=== PATIENT | female | born 1960 | race Caucasian/White ===

== ENCOUNTER 2018-02-21 16:41 | Observation (INO) ==
--- NOTE | 2018-02-21 17:23 | Emergency Department Note ---
Disposition Clinical Impression: Constipation Abdominal pain Qualifiers: Abdominal location: generalized Qualified Code(s): R10.84 - Generalized abdominal pain Disposition: Still a Patient Condition: Fair Time of Disposition: 18:54 Abdominal Pain HPI - General Chief Complaint: ED Abdominal Pain Stated Complaint: "Constipated" Time Seen by Provider: 02/21/18 16:55 Source: patient Nursing Notes Reviewed: Yes Vital Signs Reviewed: Yes - History of Present Illness HPI Narrative: 58 year old female presents for constipation and abdominal pain. Patient states that she's been constipated for 6 months and been getting worse. Five days ago, she took X-lax for constipation for 4 days. She made a small bowel movement measuring about a cup of soft stool. There was "a little" bright red blood on toilet paper. Patient did not feel completely empty but could not defecate further. Patient does not know if she has hemorrhoids. Patient has not been able to make another bowel movement since. States she feels bloated. Patient states she's been drinking a gallon of water daily for 2 weeks. She has not tried any other laxatives or stool softeners since. Patient also complains of abdominal pain that started 2 days ago. Describes "tearing" pain in LUQ and LLQ that worsens when she lays down. Patient has not tried anything for the pain. Patient also reports she feels lightheaded when she lays down. Patient denies fever, nausea/vomiting, urinary symptoms, swelling. Patient states she's worried about colon cancer because two people she knows got diagnosed with colon cancer. Reports medical history of titanium rods in back, diabetes, sciatic nerve, HTN, and HLD. Current smoker. Denies alcohol and drugs. Pain Scale: 7 - Related Data Home Medications Medication Instructions Recorded Confirmed Gabapentin [Neurontin] 800 mg PO TID 11/11/15 11/11/15 Lisinopril [Zestril] 20 mg PO BID 11/11/15 11/11/15 OxyCODONE/APAP 7.5/325 [Percocet 1 each PO Q6HR 11/11/15 11/11/15 7.5/325 MG] Pravastatin Sodium [Pravachol] 40 mg PO BID 11/11/15 11/11/15 metFORMIN [Glucophage] 500 mg PO BID 11/11/15 11/11/15 Insulin DETEMIR [Levemir Flextouch] 100 unit SQ 02/28/16 02/28/16 Previous Rx's Medication Instructions Recorded Albuterol Sulfate [Albuterol 2 puff IH QID #1 inhaler 02/28/16 Inhaler] Doxycycline 100 mg PO BID #20 capsule 02/28/16 Ondansetron HCl [Zofran] 4 mg PO TID PRN #10 tablet 02/28/16 Benzonatate [Tessalon] 200 mg PO TID PRN #30 capsule 06/07/16 DiphenhydraMINE [Benadryl] 25 mg PO Q8HR PRN #20 capsule 06/07/16 Fluconazole [Diflucan] 150 mg PO Q3D #2 tab 06/07/16 GuaiFENesin ER [Mucinex] 1,200 mg PO BID #20 tbbp.12hr 06/07/16 cephALEXin [Keflex] 500 mg PO QID #40 capsule 06/07/16 Allergies Allergy/AdvReac Type Severity Reaction Status Date / Time vancomycin Allergy Swelling Verified 02/21/18 16:46 of Lip/Tongue/Throat Constitutional: Denies: fever, chills Eyes: Denies: eye pain, eye discharge ENT ED: Denies: ear pain, throat pain Cardiovascular: Denies: chest pain, palpitations Respiratory: Denies: cough, dyspnea Gastrointestinal: Reports: abdominal pain. Denies: nausea Genitourinary: Denies: urgency, dysuria Musculoskeletal: Reports: back pain. Denies: neck pain Integumentary: Denies: rash, abrasion Neurological: Denies: headache, weakness Abdominal Pain PMH - Past Medical History Medical history: Reports: diabetes, hyperlipidemia, hypertension Female Surgical History: Reports: no surgical history Psychiatric history: Reports: no psych history - Social History Smoking status: Current every day smoker Alcohol use: Reports: none Drug use: Reports: none Physical Exam - General Limitations: no limitations General appearance: alert - Head Head exam: atraumatic, normocephalic - Eye Eye exam: Present: PERRL, EOMI - ENT ENT exam: normal exam, normal oropharynx - Neck Neck exam: Present: normal inspection - Chest Chest inspection: Present: normal inspection, symmetric chest wall rise - Respiratory Respiratory exam: Present: normal lung sounds bilaterally. Absent: respiratory distress - Cardiovascular Cardiovascular exam: Present: regular rate, normal rhythm - Abdominal Exam Abdominal exam: Present: soft, tenderness (diffusely tender to palpation but worse at RUQ, LUQ, and LLQ), normal bowel sounds. Absent: distention, guarding, rebound, rigidity - Extremities Exam Extremities exam: Present: normal inspection. Absent: tenderness, pedal edema, joint swelling - Back Exam Back exam: Present: normal inspection. Absent: tenderness - Neurological Exam Neurological exam: Present: alert, oriented X3 - Skin Skin exam: Present: warm, dry, intact, normal color Course Course Narrative: 58 year old female presents for constipation and abdominal pain. Patient is alert and oriented and hemodynamically stable. On exam, abdomen is soft. There is diffuse tenderness to palpation, especially at RUQ, LUQ, and LLQ. Will check labwork. Will check CT abd/pelvis. Will provide IVF, zofran, and dilaudid. - Reevaluation(s) Reevaluation #1: UA is negative. Sign out to Dr. Chahal and Dr. Morales. Time: 18:53 Vital Signs Temperature 97.6 F 02/21/18 16:45 Pulse Rate 88 02/21/18 16:45 Respiratory Rate 18 02/21/18 16:45 Blood Pressure 175/91 02/21/18 16:45 O2 Sat by Pulse Oximetry 99 02/21/18 16:45 Temperature 97.6 F 02/21/18 17:07 Pulse Rate 85 02/21/18 17:11 Respiratory Rate 16 02/21/18 17:11 Blood Pressure 166/91 02/21/18 17:11 O2 Sat by Pulse Oximetry 97 02/21/18 17:11 Oxygen Delivery Oxygen Delivery Room Air Abdominal Pain - Medical Records Medical records reviewed: Yes I reviewed the patient's medical records. - Lab Data Lab results reviewed: Yes I reviewed the patient's lab results.
[2018-02-21] MEDS ORDERED: 0.9 % Sodium Chloride 1,000 ML IVC ONE (17:51)
[2018-02-21] MEDS ORDERED: Ondansetron 4 MG/2 ML VIAL IVP ONE ×2 (17:51→20:31)
[2018-02-21] MEDS ORDERED: *HR* HYDROmorphone (PF) 1 MG/ML SYRINGE IVP ONE ×2 (17:51→20:31)
[2018-02-21] MEDS ORDERED: Isovue-370 500 ML INFUS..BTL IV ONE (17:52)
--- NOTE | 2018-02-21 17:53 | Emergency Department Note ---
Disposition Clinical Impression: Elevated lipase, Common bile duct dilation Abdominal pain Qualifiers: Abdominal location: generalized Qualified Code(s): R10.84 - Generalized abdominal pain Disposition: Admitted As Inpatient Condition: Fair Referrals: NONE,PCP [Non-Partnered Physician] - Forms: ED Satisfaction Letter, Work/School Release General Adult HPI - General Chief complaint: ED Abdominal Pain Stated complaint: "Constipated" Time Seen by Provider: 02/21/18 16:55 Source: patient Limitations: no limitations - History of Present Illness Pain Scale: 7 - Related Data Home Medications Medication Instructions Recorded Confirmed Gabapentin [Neurontin] 800 mg PO TID 11/11/15 11/11/15 Lisinopril [Zestril] 20 mg PO BID 11/11/15 11/11/15 OxyCODONE/APAP 7.5/325 [Percocet 1 each PO Q6HR 11/11/15 11/11/15 7.5/325 MG] Pravastatin Sodium [Pravachol] 40 mg PO BID 11/11/15 11/11/15 metFORMIN [Glucophage] 500 mg PO BID 11/11/15 11/11/15 Insulin DETEMIR [Levemir Flextouch] 100 unit SQ 02/28/16 02/28/16 Previous Rx's Medication Instructions Recorded Albuterol Sulfate [Albuterol 2 puff IH QID #1 inhaler 02/28/16 Inhaler] Doxycycline 100 mg PO BID #20 capsule 02/28/16 Ondansetron HCl [Zofran] 4 mg PO TID PRN #10 tablet 02/28/16 Benzonatate [Tessalon] 200 mg PO TID PRN #30 capsule 06/07/16 DiphenhydraMINE [Benadryl] 25 mg PO Q8HR PRN #20 capsule 06/07/16 Fluconazole [Diflucan] 150 mg PO Q3D #2 tab 06/07/16 GuaiFENesin ER [Mucinex] 1,200 mg PO BID #20 tbbp.12hr 06/07/16 cephALEXin [Keflex] 500 mg PO QID #40 capsule 06/07/16 Allergies Allergy/AdvReac Type Severity Reaction Status Date / Time vancomycin Allergy Swelling Verified 02/21/18 16:46 of Lip/Tongue/Throat Constitutional: Denies: fever, chills Eyes: Denies: eye pain, eye discharge ENT ED: Denies: ear pain, throat pain Cardiovascular: Denies: chest pain, palpitations Respiratory: Denies: cough, dyspnea Gastrointestinal: Reports: abdominal pain. Denies: nausea Genitourinary: Denies: urgency, dysuria Musculoskeletal: Reports: back pain. Denies: neck pain Integumentary: Denies: rash, abrasion Neurological: Denies: headache, weakness Past Medical History - Past Medical History Medical history: Reports: diabetes, hyperlipidemia, hypertension Psychiatric history: Reports: no psych history - Social History Smoking Status: Current every day smoker Smokeless Tobacco Status: No Alcohol use: Reports: none Drug use: Reports: none Physical Exam - General Limitations: no limitations General appearance: alert Course Vital Signs Temperature 97.6 F 02/21/18 16:45 Pulse Rate 88 02/21/18 16:45 Respiratory Rate 18 02/21/18 16:45 Blood Pressure 175/91 02/21/18 16:45 O2 Sat by Pulse Oximetry 99 02/21/18 16:45 Temperature 97.6 F 02/21/18 17:07 Pulse Rate 96 02/21/18 18:40 Respiratory Rate 18 02/21/18 18:40 Blood Pressure 119/78 02/21/18 18:40 O2 Sat by Pulse Oximetry 96 02/21/18 18:40 Oxygen Delivery Oxygen Delivery Room Air Medical Decision Making - [facility] Narrative Medical decision making narrative: , Bile duct is dilated. Lipase is borderline, just under 1.5 times over limits of normal. Alkaline phosphatase and transaminases are normal. She is not a drinker. MRCP at this point would seem warranted. She continues to have pain and nausea, we will repeat her medications. We have paged the hospitalist for admission. - Lab Data Result diagrams: 02/21/18 19:00 02/21/18 19:00 Lab Results 02/21/18 02/21/18 02/21/18 Range/Units 18:25 19:00 19:00 WBC 9.0 (4.3-11.1) K/mcL RBC 4.74 (3.82-4.97) M/mcL Hgb 13.5 (11.5-15.4) g/dL Hct 40.2 (35.3-44.9) % MCV 84.8 (83.0-100.0) fL MCH 28.5 (28.0-33.3) pg MCHC 33.6 (31.6-35.5) g/dL RDW 13.8 (11.5-14.5) % Plt Count 231 (140-400) K/mcL MPV 11.8 (9.4-12.4) fL Immature Gran % 0.2 (0-4) % Seg Neutrophils % 42.1 % Lymphocytes % 47.6 % Monocytes % 6.4 % Eosinophils % 2.9 % Basophils % 0.8 % Neutrophils # 3.8 (1.6-8.9) K/mcL Lymphocytes # 4.3 (0.6-4.6) K/mcL Monocytes # 0.6 (0.0-1.3) K/mcL Eosinophils # 0.3 (0.0-0.6) K/mcL Basophils # 0.1 (0.0-0.2) K/mcL Sodium 137 (136-145) mEq/L Potassium 4.0 (3.5-5.1) mEq/L Chloride 104 (98-107) mEq/L Carbon Dioxide 26 (23-29) mEq/L BUN 10 (6-20) mg/dL Creatinine 0.56 L (0.60-1.20) mg/dL Est GFR ( Amer) > 60 (> 60) Est GFR (Non-Af Amer) > 60 (> 60) BUN/Creatinine Ratio 18 (6-26) Glucose 281 H (70-105) mg/dL Calculated Osmolality 293 (280-300) Calcium 9.0 (8.6-10.3) mg/dL Total Bilirubin 0.3 (0.3-1.0) mg/dL Direct Bilirubin 0.0 (0.0-0.2) mg/dL Indirect Bilirubin 0.3 (0.0-1.2) mg/dL AST 11 L (13-39) Units/L ALT 8 (7-52) Units/L Alkaline Phosphatase 54 (34-104) Units/L Serum Total Protein 6.7 (6.4-8.9) g/dL Albumin 3.9 (3.5-5.7) g/dL Globulin 2.8 (2.4-3.5) g/dL Albumin/Globulin Ratio 1.4 (1.1-2.2) Lipase 121 H (11-82) Units/L Urine Color Yellow (Yellow) Urine Clarity Clear (Clear) Urine pH 6.0 (5.0-8.0) pH Units Ur Specific [place] > 1.030 H (1.010-1.025) Urine Protein Negative (Neg-Trace) mg/dL Urine Glucose (UA) >=1000 H (Normal) mg/dL Urine Ketones Negative (Negative) mg/dL Urine Blood Negative (Negative) Urine Nitrite Negative (Negative) Urine Bilirubin Negative (Negative) Urine Urobilinogen Normal (Normal) mg/dL Ur Leukocyte Esterase Negative (Negative) Ur Culture Indicated? NO (NO) Attestation Statement - Attestation Attestation: I examined this patient and my medical decision-making was reviewed with the Resident Physician. I agree with the documented findings, disposition and treatment plan as described except to the extent set forth below. Moderate tenderness with voluntary guarding to the right some moderate palpation on my exam, most prominent in the epigastrium but present on the left side of the abdomen as well. I cannot distract her. She has bowel sounds and is passing gas, no vomiting, I do not suspect obstruction. She is not rigid, but does have voluntary guarding. Imaging is warranted.
[2018-02-21 18:40] LABS: Bilirubin,Urine Negative (Negative); Blood,Urine Negative (Negative); Clarity,Urine Clear (Clear); Color,Urine Yellow (Yellow); Glucose,Urine (UA) >=1000 mg/dL (Normal); Ketones,Urine Negative (Negative); Leukocyte Esterase,Urine Negative (Negative); Nitrite,Urine Negative (Negative); Protein,Urine Negative (Neg-Trace); Specific Gravity,Urine > 1.030 (1.010-1.025); Urobilinogen,Urine Normal (Normal)
[2018-02-21 19:22] LABS: Basophils # 0.1 K/mcL (0.0-0.2); Basophils % 0.8 %; Eosinophils # 0.3 K/mcL (0.0-0.6); Eosinophils % 2.9 %; Hematocrit 40.2 % (35.3-44.9); Hemoglobin 13.5 g/dL (11.5-15.4); Immature Granulocytes % 0.2 % (0-4); Lymphocytes # 4.3 K/mcL (0.6-4.6); Lymphocytes % 47.6 %; Mean Corpuscular HGB Conc 33.6 g/dL (31.6-35.5); Mean Corpuscular Hemoglobin 28.5 pg (28.0-33.3); Mean Corpuscular Volume 84.8 fL (83.0-100.0); Mean Platelet Volume 11.8 fL (9.4-12.4); Monocytes # 0.6 K/mcL (0.0-1.3); Monocytes % 6.4 %; Neutrophils # 3.8 K/mcL (1.6-8.9); Platelet Count 231 K/mcL (140-400); Red Blood Count 4.74 M/mcL (3.82-4.97); Red Cell Distribution Width 13.8 % (11.5-14.5); Segmented Neutrophils % 42.1 %
[2018-02-21 19:42] LABS: Alanine Aminotransferase 8 Units/L (7-52); Albumin 3.9 g/dL (3.5-5.7); Albumin/Globulin Ratio 1.4 (1.1-2.2); Alkaline Phosphatase 54 Units/L (34-104); Aspartate Amino Transferase 11 Units/L (13-39); BUN/Creatinine Ratio 18 (6-26); Bilirubin,Indirect 0.3 mg/dL (0.0-1.2); Bilirubin,Total 0.3 mg/dL (0.3-1.0); Blood Urea Nitrogen 10 mg/dL (6-20); Carbon Dioxide 26 mEq/L (23-29); Chloride 104 mEq/L (98-107); Globulin 2.8 g/dL (2.4-3.5); Glucose 281 mg/dL (70-105); Lipase 121 Units/L (11-82); Osmolality,Calculated 293 (280-300); Sodium 137 mEq/L (136-145); Total Protein 6.7 g/dL (6.4-8.9); eGFR For Non-African Americans > 60 (> 60)
[2018-02-21] MEDS ORDERED: Ondansetron ODT 4 MG TAB.RAPDIS PO PRN (21:45)
[2018-02-21] MEDS ORDERED: Dextrose Gel 15 GM/37.5 ML TUBE PO PRN ×2 (21:47)
[2018-02-21] MEDS ORDERED: MOM Conc 10 ML UD.LIQ PO ONE (21:51)
[2018-02-21] MEDS ORDERED: Ringers Solution, Lactated 1,000 ML IVC SCH (22:00)
[2018-02-21] MEDS ORDERED: Insulin DETEMIR 100 UNIT/ML X5UNITS SQ SCH (22:00)
[2018-02-21] MEDS ORDERED: Famotidine 20 MG/2 ML VIAL IVP ONE (23:05)
--- NOTE | 2018-02-21 23:05 | Internal Med History&Physical ---
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 She states that she has been constipated for the past 6 months however it has progressively been getting worse. She does admit to chronically being on narcotic medications for her back pain however she is typically able to resolve her constipation by taking Ex-Lax. She says that in the past 9 days she has only moved a cup full of stool. She feels bloated and localizes her pain to the epigastrium and right upper quadrant predominantly. She has not tried any other laxatives or stool softeners but tries to keep up with her water intake. Emergency room she had a CAT scan done showing mild nonspecific prominence of the CBD without stone and mild distention of the duodenum and jejunum as well as stool noted throughout the colon. She is admitted for observation due to a mild elevation in her lipase which does not meet the limits of diagnosis for pancreatitis but in the setting of the nonspecific ductal dilation noted. Past Med Surg Social Fam HX - Past Medical History Medical history: diabetes, hyperlipidemia, hypertension Psychiatric history: no psych history - Past Surgical History Surgical History: hysterectomy Additional surgical history: back surgery x3, throat tumors removed, carpal tunnel , muscle reconstruction of right arm, and tubal ligation. - Social History Smoking Status: Current every day smoker Smokeless Tobacco Status: No Alcohol use: none Drug use: none Internal Medicine - H&P: Meds Gabapentin [Neurontin] 800 mg PO TID 11/11/15 [History] Lisinopril [Zestril] 20 mg PO BID 11/11/15 [History] OxyCODONE/APAP 7.5/325 [Percocet 7.5/325 MG] 1 each PO Q6HR 11/11/15 [History] Pravastatin Sodium [Pravachol] 40 mg PO BID 11/11/15 [History] metFORMIN [Glucophage] 500 mg PO BID 11/11/15 [History] Albuterol Sulfate [Albuterol Inhaler] 2 puff IH QID #1 inhaler 02/28/16 [Rx] Doxycycline 100 mg PO BID #20 capsule 02/28/16 [Rx] Insulin DETEMIR [Levemir Flextouch] 100 unit SQ 02/28/16 [History] Ondansetron HCl [Zofran] 4 mg PO TID PRN #10 tablet 02/28/16 [Rx] Benzonatate [Tessalon] 200 mg PO TID PRN #30 capsule 06/07/16 [Rx] DiphenhydraMINE [Benadryl] 25 mg PO Q8HR PRN #20 capsule 06/07/16 [Rx] Fluconazole [Diflucan] 150 mg PO Q3D #2 tab 06/07/16 [Rx] GuaiFENesin ER [Mucinex] 1,200 mg PO BID #20 tbbp.12hr 06/07/16 [Rx] cephALEXin [Keflex] 500 mg PO QID #40 capsule 06/07/16 [Rx] Allergy/AdvReac Type Severity Reaction Status Date / Time vancomycin Allergy Swelling Verified 02/21/18 16:46 of Lip/Tongue/Throat All Systems PM: A 10-system review of systems was performed and is negative for pertinent findings except as documented above in the HPI. Family history obtained and found noncontributory. - Constitutional Vitals: Temp Pulse Resp BP Pulse Ox 97.9 F 73 16 172/99 98 02/21/18 21:47 02/21/18 21:47 02/21/18 21:47 02/21/18 21:47 02/21/18 21:47 Exam: Vitals: Reviewed General: Well-developed and in no acute distress but appears uncomfortable due to pain. Skin: Warm and supple. HEENT: Slightly dry mucous membranes. Mild conjunctivae pallor. Neck: No lymphadenopathy. No JVD. No carotid bruits. No palpable thyroid. Chest: Normal thoracic expansion. Normal breath sounds. Clear to auscultation. Heart: Normal S1 & S2; rhythmic. No rubs or murmurs. Abdomen: Non-distended, soft and mildly tender to palpation in the epigastrium. No peritoneal reaction. Liver is normal in size. Spleen is not palpable. Extremities: No clubbing, cyanosis or edema. No calf tenderness. Normal distal pulses. Neurological: Awake, alert and oriented to person, place and time. No focal deficits. Psych: Affect appropriate. Internal Med - H&P Results - Labs CBC & Chem 7: 02/21/18 19:00 02/21/18 19:00 Labs: Short CBC 02/21/18 Range/Units 19:00 WBC 9.0 (4.3-11.1) K/mcL Hgb 13.5 (11.5-15.4) g/dL Hct 40.2 (35.3-44.9) % Plt Count 231 (140-400) K/mcL Neutrophils # 3.8 (1.6-8.9) K/mcL BMP 02/21/18 19:00 Sodium 137 Potassium 4.0 Chloride 104 Carbon Dioxide 26 BUN 10 Creatinine 0.56 L Glucose 281 H Calcium 9.0 Liver Function 02/21/18 Range/Units 19:00 Total Bilirubin 0.3 (0.3-1.0) mg/dL Direct Bilirubin 0.0 (0.0-0.2) mg/dL AST 11 L (13-39) Units/L ALT 8 (7-52) Units/L Alkaline Phosphatase 54 (34-104) Units/L Albumin 3.9 (3.5-5.7) g/dL Urine 02/21/18 Range/Units 18:25 Urine Color Yellow (Yellow) Urine Clarity Clear (Clear) Urine pH 6.0 (5.0-8.0) pH Units Ur Specific [place] > 1.030 H (1.010-1.025) Urine Protein Negative (Neg-Trace) mg/dL Urine Glucose (UA) >=1000 H (Normal) mg/dL - Impressions ITS Impressions Abdomen/Pelvis CT 02/21/18 17:52 IMPRESSION: Mild nonspecific prominence of the common bile duct without stone. Mild distention of the duodenum and jejunum. There is no focal abnormality otherwise noted in this distribution. Otherwise, no acute abnormality in the abdomen or the pelvis. D/ / Joey Claros / Joey Claros Interpreting Provider: Joey Claros - Assessment and plan (1) Constipation Current Visit: Yes Status: Acute Assessment and plan: Concern for opiate-associated constipation given her use of narcotics for pain control. Will provide MoM and Biascodyl tonight and continue with docusate daily in conjunction with her opiate regimen. She reports having undergone a colonoscopy recently and had multiple polyps removed, advised to return in a year but never followed up. She will benefit from OP GI f/u. Qualifiers: Constipation type: drug induced constipation Qualified Code(s): K59.03 - Drug induced constipation (2) Abdominal pain Current Visit: Yes Status: Acute Assessment and plan: Likely associated with her abdominal distension and bloating from constipation. No radiologic signs of pancreatitis or cholecystitis. Ductal dilation seems non- specific. Will provide pain relief as needed and reassess after she passes a bowel movement. Qualifiers: Abdominal location: generalized Qualified Code(s): R10.84 - Generalized abdominal pain (3) Common bile duct dilation Current Visit: Yes Status: Acute Assessment and plan: Non-specific. No stones seen. Will get an ultrasound in the morning for better evaluation. (4) Elevated lipase Current Visit: Yes Status: Acute Assessment and plan: Does not meet criteria for pancreatitis. Possibly associated with current state of constipation. Will check biliary ducts with ultrasound and repeat lipase in the morning after fluid resuscitation and laxatives. (5) Diabetes Current Visit: Yes Status: Acute Assessment and plan: Will continue basal and correction doses of insulin. 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
[2018-02-21] MEDS: *HR* OxyCODONE/APAP 7.5/325 TABLET PO SCH (23:52)
[2018-02-22] MEDS: Insulin LISPRO 300 UNITS/3 ML VIAL SQ SCH ×2 (00:45→06:59)
[2018-02-22] MEDS ORDERED: *HR* Heparin 5,000 UNIT/ML VIAL SQ SCH (06:00)
[2018-02-22] MEDS: *HR* OxyCODONE/APAP 7.5/325 TABLET PO SCH ×2 (06:51→11:45)
[2018-02-22] MEDS ORDERED: Lisinopril 20 MG TABLET PO SCH (09:00)
[2018-02-22] MEDS: Gabapentin 400 MG CAPSULE PO SCH ×2 (09:14→15:17)
--- NOTE | 2018-02-22 11:13 | Internal Med Progress Note ---
Hospitalist Progress Note - Encounter Date of Encounter: 02/22/18 Time of Encounter: 11:11 - Subjective Interval History: Patient still having abdominal pain. Still constipated. - Exam Vitals: Temp Pulse Resp BP Pulse Ox 97.5 F L 65 16 104/65 93 02/22/18 08:26 02/22/18 08:26 02/22/18 08:26 02/22/18 08:26 02/22/18 08:26 Exam: General: Well-developed and in no acute distress but appears uncomfortable due to pain. Skin: Warm and supple. HEENT: MMM Neck: No lymphadenopathy. No JVD. No carotid bruits. No palpable thyroid. Chest: CTAB Heart: RRR Abdomen: Soft, NT/ND Extremities: No clubbing, cyanosis or edema. No calf tenderness. Normal distal pulses. - Assessment and Plan (1) Abdominal pain Current Visit: Yes Status: Acute Assessment and Plan: Likely associated with her abdominal distension and bloating from constipation. No radiologic signs of pancreatitis or cholecystitis. Ductal dilation seems non- specific. Will provide pain relief as needed and reassess after she passes a bowel movement. RUQ ultrasound unremarkable. Patient still constipated. Giving Senna and milk of mag. If not effective will try a one time enema. (2) Elevated lipase Current Visit: Yes Status: Acute Assessment and Plan: Does not meet criteria for pancreatitis. Possibly associated with current state of constipation. Will check biliary ducts with ultrasound and repeat lipase in the morning after fluid resuscitation and laxatives. (3) Constipation Current Visit: Yes Status: Acute Assessment and Plan: Concern for opiate-associated constipation given her use of narcotics for pain control. Will provide MoM and Biascodyl tonight and continue with docusate daily in conjunction with her opiate regimen. She reports having undergone a colonoscopy recently and had multiple polyps removed, advised to return in a year but never followed up. She will benefit from OP GI f/u. If MoM not effecitve, will try one time enema. (4) Diabetes Current Visit: Yes Status: Acute Assessment and Plan: Will continue basal and correction doses of insulin. - Time Spent with Patient Total time spent is greater than 50% in coordination of care (as documented) at patient's floor/unit and/or counseling patient: Internal Medicine: Result - Labs CBC & Chem 7: 02/21/18 19:00 02/21/18 19:00 Labs: Short CBC 02/21/18 Range/Units 19:00 WBC 9.0 (4.3-11.1) K/mcL Hgb 13.5 (11.5-15.4) g/dL Hct 40.2 (35.3-44.9) % Plt Count 231 (140-400) K/mcL Neutrophils # 3.8 (1.6-8.9) K/mcL BMP 02/21/18 19:00 Sodium 137 Potassium 4.0 Chloride 104 Carbon Dioxide 26 BUN 10 Creatinine 0.56 L Glucose 281 H Calcium 9.0 Liver Function 02/21/18 Range/Units 19:00 Total Bilirubin 0.3 (0.3-1.0) mg/dL Direct Bilirubin 0.0 (0.0-0.2) mg/dL AST 11 L (13-39) Units/L ALT 8 (7-52) Units/L Alkaline Phosphatase 54 (34-104) Units/L Albumin 3.9 (3.5-5.7) g/dL Urine 02/21/18 Range/Units 18:25 Urine Color Yellow (Yellow) Urine Clarity Clear (Clear) Urine pH 6.0 (5.0-8.0) pH Units Ur Specific [place] > 1.030 H (1.010-1.025) Urine Protein Negative (Neg-Trace) mg/dL Urine Glucose (UA) >=1000 H (Normal) mg/dL - Impressions Impressions Abdomen/Pelvis CT 02/21/18 17:52 IMPRESSION: Mild nonspecific prominence of the common bile duct without stone. Mild distention of the duodenum and jejunum. There is no focal abnormality otherwise noted in this distribution. Otherwise, no acute abnormality in the abdomen or the pelvis. D/ / Joey Claros / Joey Claros Interpreting Provider: Joey Claros Abdomen Ultrasound 02/22/18 10:00 IMPRESSION: Mild hepatic steatosis. The gallbladder appears unremarkable, without intraluminal stones, gallbladder wall thickening or evidence of cholecystitis. No choledocholithiasis is identified. Common bile duct measures just over 6 mm in size. D/ / Sandro Teague MD / Sandro Teague MD Interpreting Provider: Sandro Teague MD Consult Discharge Plan - Plan Referrals: Naman Frank DO [Primary Care Provider] - (1) Abdominal pain Qualifiers: Abdominal location: generalized Qualified Code(s): R10.84 - Generalized abdominal pain (3) Constipation Qualifiers: Constipation type: drug induced constipation Qualified Code(s): K59.03 - Drug induced constipation (4) Diabetes Qualifiers: Diabetes mellitus type: type 2 Diabetes mellitus longterm insulin use: with exterminator termite use Diabetes mellitus complication status: with unspecified complications Qualified Code(s): E11.8 - Type 2 diabetes mellitus with unspecified complications; 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
[2018-02-22] MEDS ORDERED: Milk and Molasses Enema 200 ML RC ONE (11:51)
[2018-02-22] MEDS ORDERED: Insulin LISPRO 300 UNITS/3 ML VIAL SQ SCH ×2 (12:00→21:00)
[2018-02-22 14:37] VITALS: BP 95/62
--- NOTE | 2018-02-22 14:39 | Discharge Summary ---
- NOTES TO OUTPATIENT PROVIDER Notes to Outpatient Provider: - May consider outpatient GI referral if needed. Date of Encounter: 02/22/18 Time of Encounter: 14:36 - Discharge Diagnosis (1) Abdominal pain Priority: Primary Status: Acute Qualifiers: Abdominal location: generalized Qualified Code(s): R10.84 - Generalized abdominal pain (2) Elevated lipase Priority: Secondary Status: Acute (3) Constipation Priority: Secondary Status: Acute Qualifiers: Constipation type: drug induced constipation Qualified Code(s): K59.03 - Drug induced constipation (4) Diabetes Priority: Secondary Status: Acute Qualifiers: Diabetes mellitus type: type 2 Diabetes mellitus termite inspector insulin use: with termite inspector use Diabetes mellitus complication status: with unspecified complications Qualified Code(s): E11.8 - Type 2 diabetes mellitus with unspecified complications; Z79.4 - terminal block assembler (current) use of insulin Hospital course: Jeniffer Garcia is a 58-year-old woman with a history of diabetes, hypertension, hyperlipidemia and 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 She states that she has been constipated for the past 6 months however it has progressively been getting worse. She does admit to chronically being on narcotic medications for her back pain however she is typically able to resolve her constipation by taking Ex-Lax. She says that in the past 9 days she has only moved a cup full of stool. She feels bloated and localizes her pain to the epigastrium and right upper quadrant predominantly. She has not tried any other laxatives or stool softeners but tries to keep up with her water intake. Emergency room she had a CAT scan done showing mild nonspecific prominence of the CBD without stone and mild distention of the duodenum and jejunum as well as stool noted throughout the colon. She is admitted for observation due to a mild elevation in her lipase which does not meet the limits of diagnosis for pancreatitis but in the setting of the nonspecific ductal dilation noted. An ultrasound was done and showed that CBD was actually normal in size and there were no acute findings. She was given MoM and biascodyl and monitored. She did not have any success so a milk and molasses enema was given and patient was able to have a bowel movement. Lipase levels now within normal limits as well. She currently feels better. For opiate induced constipation, she will be discharged with Senna Plus BID. - Time Spent with Patient Total time spent providing and/or coordinating discharge services: - Discharge Medications Prescriptions: Sennosides/Docusate Sodium [Senna Plus] 1 each PO BID #60 tablet Home Medications: Gabapentin [Neurontin] 800 mg PO TID 11/11/15 [History] Lisinopril [Zestril] 20 mg PO BID 11/11/15 [History] OxyCODONE/APAP 7.5/325 [Percocet 7.5/325 MG] 1 each PO Q6HR 11/11/15 [History] Pravastatin Sodium [Pravachol] 40 mg PO BID 11/11/15 [History] metFORMIN [Glucophage] 500 mg PO BID 11/11/15 [History] Albuterol Sulfate [Albuterol Inhaler] 2 puff IH QID #1 inhaler 02/28/16 [Rx] Doxycycline 100 mg PO BID #20 capsule 02/28/16 [Rx] Insulin DETEMIR [Levemir Flextouch] 100 unit SQ 02/28/16 [History] Ondansetron HCl [Zofran] 4 mg PO TID PRN #10 tablet 02/28/16 [Rx] Benzonatate [Tessalon] 200 mg PO TID PRN #30 capsule 06/07/16 [Rx] DiphenhydraMINE [Benadryl] 25 mg PO Q8HR PRN #20 capsule 06/07/16 [Rx] Fluconazole [Diflucan] 150 mg PO Q3D #2 tab 06/07/16 [Rx] GuaiFENesin ER [Mucinex] 1,200 mg PO BID #20 tbbp.12hr 06/07/16 [Rx] cephALEXin [Keflex] 500 mg PO QID #40 capsule 06/07/16 [Rx] Sennosides/Docusate Sodium [Senna Plus] 1 each PO BID #60 tablet 02/22/18 [Rx] Allergies/Adverse Reactions: Allergy/AdvReac Type Severity Reaction Status Date / Time vancomycin Allergy Swelling Verified 02/21/18 16:46 of Lip/Tongue/Throat Date of admission: 02/21/18 20:54 Primary care physician: Naman Frank DO Discharging clinician: Xiao Galloway - Constitutional Vitals: Temp Pulse Resp BP Pulse Ox 97.5 F L 65 16 104/65 93 02/22/18 08:26 02/22/18 08:26 02/22/18 08:26 02/22/18 08:26 02/22/18 08:26 Exam: General: Well-developed and in no acute distress but appears uncomfortable due to pain. Skin: Warm and supple. HEENT: MMM Neck: No lymphadenopathy. No JVD. No carotid bruits. No palpable thyroid. Chest: CTAB Heart: RRR Abdomen: Soft, NT/ND Extremities: No clubbing, cyanosis or edema. No calf tenderness. Normal distal pulses. - Patient Status Disposition: Home, Self-Care Condition: Fair Functional capacity at discharge: independent ambulation Overall status at discharge: patient is progressing back to baseline - Discharge Instructions Follow Up With: Naman Frank DO [Primary Care Provider] - - Diet and Activity Activity: increase activity as tolerated Diet: advance to your usual diet, other
[2018-02-22] MEDS ORDERED: Sennosides/Docusate Sodium TABLET PO SCH (21:00)
== END 2018-02-22 17:26 | disposition home or self-care (01) ==
LOC: EMEROOARM 16:41 → 3ANU 16:41 → SUATTDRO 20:54 → 3ANU 21:48
PROVIDERS: ADMIT Internal Medicine; ATTEND Student in an Organized Health Care Education/Training Program